=== PATIENT | female | born 1955 | race Caucasian/White ===

== ENCOUNTER 2016-06-24 22:14 | Inpatient (IN) | payer BC ==
[2016-06-24 22:34] LABS: URINE APPEARANCE CLEAR; URINE BILIRUBIN SMALL (NEGATIVE); URINE BLOOD LARGE (NEGATIVE); URINE COLOR YELLOW; URINE GLUCOSE (UA) NEGATIVE (NEGATIVE); URINE KETONE TRACE (NEGATIVE); URINE LEUKOCYTE ESTERASE TRACE (NEGATIVE); URINE NITRITE NEGATIVE (NEGATIVE); URINE UROBILINOGEN 0.2 E.U./dL (0.20 - 1.00)
--- NOTE | 2016-06-24 22:40 | Emergency Department Record ---
History of Present Illness - General Chief Complaint: Abdominal Pain Stated Complaint: ABD PAIN Time Seen by Provider: 06/24/16 22:26 Source: Patient Mode of Arrival: Ambulatory Limitations: No limitations - History of Present Illness Initial Comments: The patient is here due to L sided AP for 2-3 days. The pain is mainly in the upper abdomen > lower abdomen. It is sharp and stabbing at times and she did have one episode of loose stools yesterday AM. Motrin does help the pain and eating does not affect it. She denies any nausea, back pain, fever, chills, dysuria or hematuria. The patient has had a PARAG in the past and has had a hx of Ovarian CA but that is not active at this time. MD Complaint: Abdominal pain Onset/Timin -: Days(s) Location: [facility] Radiation: None Severity: Moderate Quality: Cramping Consistency: Constant, Getting worse Improves With: Nothing Worsens With: Nothing Associated Symptoms: Diarrhea - Related Data Patient : No Home Medications Medication Instructions Recorded Confirmed Last Taken No Home Med [NO HOME MEDS] 06/24/16 06/24/16 Unknown Allergies Allergy/AdvReac Type Severity Reaction Status Date / Time minocycline [From Minocin] Allergy RASH Verified 06/24/16 22:40 Travel Screening - Travel/Exposure Within Last 30 Days Have you traveled within the last 30 days?: No Review of Systems Constitutional: Denies: Chills, Fever Eyes: Denies: Eye discharge ENT: Denies: Congestion Respiratory: Denies: Cough, Dyspnea Past Medical History - SOCIAL HISTORY Smoking Status: Never smoker Alcohol Use: None Drug Use: None - RESPIRATORY Hx Respiratory Disorders: No - CARDIOVASCULAR Hx Cardio Disorders: No - NEURO Hx Neuro Disorders: No - GI Hx GI Disorders: No - Hx Genitourinary Disorders: No - ENDOCRINE Hx Endocrine Disorders: No - MUSCULOSKELETAL Hx Musculoskeletal Disorders: No - PSYCH Hx Psych Problems: No - HEMATOLOGY/ONCOLOGY Hx Hematology/Oncology Disorders: Yes Hx Cancer: Yes (Ovarian) Hx Chemotherapy: Yes (02/01) Hx Radiation Therapy: No Family Medical History Any Significant Family History?: No Physical Exam - General General Appearance: Alert, Oriented x3, Cooperative, No acute distress - Head Head exam: Atraumatic, Normocephalic, Normal inspection - Eye Eye exam: Normal appearance, PERRL - ENT Throat exam: Normal inspection. negative: Tonsillar erythema, Tonsillar exudate - Neck Neck exam: Normal inspection, Full ROM. negative: Tenderness - Respiratory Respiratory exam: Normal lung sounds bilaterally. negative: Respiratory distress - Cardiovascular Cardiovascular Exam: Regular rate, Normal rhythm, Normal heart sounds - GI/Abdominal GI/Abdominal exam: Soft, Tenderness (There is upper abdominal tenderness L side to palpation.). negative: Distended, Guarding, Rebound, Rigid - Extremities Extremities exam: Normal inspection, Full ROM, Normal capillary refill. negative: Tenderness - Neurological Neurological exam: Alert, Normal gait. negative: Abnormal gait, Motor sensory deficit Course Vital Signs 06/24/16 22:23 Temperature 98.7 F Pulse Rate [ 112 H Pulse Ox Probe] Respiratory 20 Rate Blood Pressure 106/63 [Left Arm] Pulse Ox 95 - Reevaluation(s) Reevaluation #1: The patient is resting quietly. She denies any new issues or problems. She is still drinking the oral contrast. 06/24/16 23:42 Reevaluation #2: The patient is doing well. I did discuss the CT with the patient and the fact it appears she has a large L lower lobe pneumonia. Due to that fact we will admit the patient to the hospital for IV Abx. 06/25/16 02:13 Medical Decision Making - Data Complexity MDM Data: Labs Ordered and/or Reviewed, X-Ray Ordered and/or Reviewed - Lab Data Result diagrams: 06/24/16 23:00 06/24/16 23:00 Lab Results 06/24/16 Range/Units 22:34 Urine Color Yellow Urine Appearance Clear Urine pH 6.0 (5.0-8.0) Ur Specific [place] 1.020 (1.002-1.030) Urine Protein 100 mg/dl H (NEGATIVE) Urine Glucose (UA) Negative (NEGATIVE) Urine Ketones Trace H (NEGATIVE) Urine Blood Large H (NEGATIVE) Urine Nitrite Negative (NEGATIVE) Urine Bilirubin Small H (NEGATIVE) Urine Urobilinogen 0.2 (0.20 - 1.00) E.U./dL Ur Leukocyte Esterase Trace H (NEGATIVE) - Radiology Data Radiology results: Report reviewed (CT: Abdomen WNL's but Large L lower lobe pneumonia.), Image reviewed (CXR: Left Lower lobe infiltrate.) Disposition Disposition: Admit Clinical Impression: Pneumonia Qualifiers: Pneumonia type: due to unspecified organism Laterality: left Lung location: lower lobe of lung Qualified Code(s): J18.1 - Lobar pneumonia, unspecified organism Disposition: Still a Patient at [facility] Decision to Admit: Admit from ER Decision to Admit Date: 06/25/16 Decision to Admit Time: 02:15 Accepting Physician: Yolis Time Discussed w/Accepting Physician: 02:15 Condition: (2) Stable Forms: Patient Portal Access Time of Disposition: 02:15
[2016-06-24 22:41] LABS: URINE BACTERIA FEW; URINE WBC 0 - 2 (0-2/hpf)
[2016-06-24] MEDS ORDERED: 0.9 % SODIUM CHLORIDE 1,000 ML BAG IV ONE ×2 (22:46→23:24)
[2016-06-24] MEDS ORDERED: ONDANSETRON HCL IV 4 MG/2 ML VIAL IV ONE (22:46)
[2016-06-24] MEDS ORDERED: HYDROMORPHONE HCL 1 MG/ML CPJ IVP ONE ×2 (22:46→23:41)
[2016-06-24 23:12] LABS: HEMATOCRIT 39.6 % (35.0-47.0); HEMOGLOBIN 13.1 gm/dl (11.6-16.0); MEAN CELL VOLUME 101.8 fl (81-97); MEAN CORPUSCULAR HEMOGLOBIN 33.6 pg (27-33); MEAN CORPUSCULAR HGB CONC 33.1 g/dl (32-36); MEAN PLATELET VOLUME 9.5 fl (7.4-10.4); PLATELET COUNT 135 K/uL (130-400); RED BLOOD COUNT 3.89 M/uL (3.80-5.40); WHITE BLOOD COUNT W/O DIFF 11.4 K/uL (4.2-12.2)
[2016-06-24 23:21] LABS: ALBUMIN 3.7 gm/dL (3.5-5.0); ALKALINE PHOSPHATASE 88 U/L (38-126); ALT/SGPT 18 U/L (9-52); AMYLASE < 30 U/L (30-110); ANION GAP 9.8 (7-16); AST/SGOT 15 U/L (14-36); BILIRUBIN,TOTAL 0.58 mg/dL (0.2-1.3); BLOOD UREA NITROGEN 22 mg/dL (7-17); CARBON DIOXIDE 23.2 mmol/L (22-30); CREATININE 1.1 mg/dL (0.52-1.04); EST GLOMERULAR FILTRATION RATE 54 ml/min; GLUCOSE,RANDOM 131 mg/dL (70-110); LIPASE 18 U/L (23-300); TOTAL PROTEIN 6.6 gm/dL (6.3-8.2)
[2016-06-25] MEDS ORDERED: AZITHROMYCIN 500 MG TABLET PO ONE (01:59)
[2016-06-25] MEDS ORDERED: CEFTRIAXONE SODIUM 1 GM in 0.9 % SODIUM CHLORIDE 100ML 100 ML IVPB ONE (02:01)
[2016-06-25] MEDS ORDERED: IPRATROPIUM/ALBUTEROL (0.5MG/3MG) NEB INH PRN (02:16)
[2016-06-25] MEDS ORDERED: 0.9 % SODIUM CHLORIDE 1000ML 1,000 ML IV PRN ×2 (02:16→04:39)
[2016-06-25] MEDS ORDERED: ACETAMINOPHEN 500 MG TABLET PO PRN (02:16)
[2016-06-25] MEDS ORDERED: MORPHINE SULFATE 5 MG/ML PFS IVP ONE (02:27)
[2016-06-25] MEDS ORDERED: CEFTRIAXONE SODIUM 1 GM in 0.9 % SODIUM CHLORIDE 100ML 100 ML IVPB SCH (02:30)
[2016-06-25] MEDS ORDERED: AZITHROMYCIN 500 MG in 0.9 % SODIUM CHLORIDE 250ML 250 ML IVPB SCH (02:30)
[2016-06-25] MEDS ORDERED: HYDROCODONE/APAP 5/325MG TABLET PO ONE (03:21)
[2016-06-25 06:36] LABS: HEMATOCRIT 35.4 % (35.0-47.0); HEMOGLOBIN 11.7 gm/dl (11.6-16.0); MEAN CELL VOLUME 103.2 fl (81-97); MEAN CORPUSCULAR HEMOGLOBIN 34.1 pg (27-33); MEAN CORPUSCULAR HGB CONC 33.1 g/dl (32-36); MEAN PLATELET VOLUME 9.6 fl (7.4-10.4); PLATELET COUNT 108 K/uL (130-400); RED BLOOD COUNT 3.43 M/uL (3.80-5.40); RED CELL DISTRIBUTION WIDTH 12.7 % (11.5-14.5); WHITE BLOOD COUNT W/O DIFF 5.8 K/uL (4.2-12.2)
[2016-06-25 06:54] LABS: BASO % 0.2 % (0-6); EOS % 0.2 % (0-6); GRAN % 93.8 % (47-80); LYMPH % 2.2 % (16-45); MONO % 3.6 % (0-9)
[2016-06-25 06:56] LABS: ALBUMIN 2.7 gm/dL (3.5-5.0); ALKALINE PHOSPHATASE 64 U/L (38-126); ALT/SGPT 24 U/L (9-52); ANION GAP 5.8 (7-16); AST/SGOT 10 U/L (14-36); BILIRUBIN,TOTAL 0.34 mg/dL (0.2-1.3); BLOOD UREA NITROGEN 16 mg/dL (7-17); CARBON DIOXIDE 22.2 mmol/L (22-30); EST GLOMERULAR FILTRATION RATE > 60 ml/min; GLUCOSE,RANDOM 94 mg/dL (70-110); TOTAL PROTEIN 5.3 gm/dL (6.3-8.2)
[2016-06-25] MEDS: ACETAMINOPHEN 500 MG TABLET PO PRN ×2 (09:04→14:26)
--- NOTE | 2016-06-25 09:14 | RADIOLOGY REPORT ---
EXAM: CHEST, TWO VIEWS HISTORY: ACUTE NONPRODUCTIVE COUGH. ACTIVE OVARIAN CANCER, CHEMOTHERAPY LAST DOSE 02/16/16. TECHNIQUE: Two views of the chest were obtained. Comparison: Abdomen CT same day. FINDINGS: Right chest port present. Extensive lung consolidation in the left lower lobe measuring at least 9 x 5 cm. Reticulonodular opacity at the right base could relate to atypical pneumonitis. The cardiac silhouette is not enlarged. The diaphragm and osseous structures are unremarkable. IMPRESSION: DENSE LEFT LOWER LOBE AIR SPACE DISEASE LIKELY DUE TO PNEUMONIA. RETICULONODULAR OPACITY AT THE RIGHT BASE WHICH MAY ALSO RELATE TO ATYPICAL PNEUMONITIS. JOB NUMBER: [id number] MTDD
--- NOTE | 2016-06-25 09:33 | CT SCAN REPORT ---
EXAM: ABDOMEN AND PELVIS CT WITH IV CONTRAST HISTORY: ACUTE LEFT LOWER QUADRANT ABDOMINAL PAIN. HISTORY OF OVARIAN CANCER AND CHEMOTHERAPY. TECHNIQUE: Contiguous axial images from the lung bases to the symphysis pubis were obtained after the uneventful intravenous administration of 100 ml of Omnipaque 300. Oral contrast was also utilized. Comparison: Chest x-ray 06/25/16. FINDINGS: Dense consolidation involving the basal segments of the left lower lobe. Pleural based density extending into the intercostal muscle between the right tenth and eleventh ribs best seen on axial images 23 through 26 suspicious for tumor. This measures up to 2.9 x 1.4 cm. Trace left pleural effusion. The liver demonstrates a cyst in the inferior aspect of the right lobe measuring 7.5 mm. The spleen, kidneys, adrenals, and pancreas are unremarkable. The gallbladder is mildly distended with no adjacent inflammation. The visualized loops of small and large bowel are of normal caliber with no wall thickening. The appendix is not seen with certainty although there are no pericecal inflammatory changes. Mild to moderate aortoiliac calcification. The uterus is absent. No free intraperitoneal fluid or adenopathy. Surgical clips in the deep pelvis. Small lucent foci within the T9 through T12 vertebral bodies as well as L1 through L5 vertebral bodies in the left iliac wing. IMPRESSION: 1. DENSE CONSOLIDATIVE CHANGE IN THE LEFT LOWER LOBE LIKELY DUE TO PNEUMONIA. SMALL LEFT PLEURAL EFFUSION LIKELY A PARAPNEUMONIC EFFUSION. 2. THERE IS A PLEURAL DENSITY EXTENDING INTO THE INTERCOSTAL MUSCLE BETWEEN THE RIGHT TENTH AND ELEVENTH RIBS SUSPICIOUS FOR PLEURAL BASED TUMOR. RECOMMEND COMPARISON TO ANY PRIOR IMAGING. 3. SURGICAL CLIPS IN THE DEEP PELVIS WITH NO FREE INTRAPERITONEAL FLUID OR OBVIOUS ADENOPATHY. 4. INDETERMINATE LUCENT LESIONS THROUGHOUT THE AXIAL SKELETON FOR WHICH METASTATIC DISEASE CANNOT BE COMPLETELY EXCLUDED. JOB NUMBER: [id number] MTDD
[2016-06-25] MEDS: CEFTRIAXONE SODIUM 1 GM in 0.9 % SODIUM CHLORIDE 100ML 100 ML IVPB SCH (14:26)
[2016-06-25] MEDS: ENOXAPARIN 40 MG/0.4 ML SYR SQ SCH (14:27)
[2016-06-25] MEDS: TRAMADOL HCL 50 MG TABLET PO PRN (23:33)
[2016-06-25] MEDS: IPRATROPIUM/ALBUTEROL (0.5MG/3MG) NEB INH PRN (23:41)
[2016-06-26] MEDS: CEFTRIAXONE SODIUM 1 GM in 0.9 % SODIUM CHLORIDE 100ML 100 ML IVPB SCH ×2 (01:54→14:24)
[2016-06-26] MEDS: AZITHROMYCIN 500 MG in 0.9 % SODIUM CHLORIDE 250ML 250 ML IVPB SCH (02:57)
--- NOTE | 2016-06-26 10:03 | History and Physical Report ---
DATE OF ADMISSION: 06/25/2016 CHIEF COMPLAINT: Left upper quadrant abdominal pain. HISTORY OF CHIEF COMPLAINT: This 60-year-old female presents to the Emergency Department, is seen by Dr. Bejarano, with initial complaints of left-sided abdominal pain for the last 2-3 days. She describes the pain as being right around the area of the left diaphragm, sharp, stabbing type pain. She also had 1 episode of loose stools on the day of presenting to the emergency department, and also she took Motrin to help the pain which did not seem to help. Eating did not change the pain. She denies nausea, back pain, fever, chills, dysuria, or hematuria. She said she took 1 dose of Imodium which helped the diarrhea. She said she has a dry cough. She did complain of some chills and sweats the night prior to coming to the emergency department. MEDICAL HISTORY: Ovarian cancer with a hysterectomy and diagnosis in 2011. Her oncologist is Dr. Dev Garcia at [facility]. She finished chemotherapy in January 2016 and she had a PET scan in March 2016 at [facility] which she was told was negative. She is seeing Oncology every 3 months. She also has a history of a goiter, goiter surgery many years ago. She sees Dr. Forrest, the educational technologist in [place]. She was on thyroid medication but that was stopped about 2 years ago because she got tired of taking the medication and Dr. Forrest checked her over and okayed stopping the thyroid medication. SURGICAL HISTORY: Hysterectomy and bilateral oophorectomy for ovarian cancer, a goiter removal. The thyroid was to prevent the goiter from reforming. Kind of sounds like a thyroid nodule. CURRENT MEDICATIONS: None. ALLERGIES: Minocin. SOCIAL HISTORY: She smoked cigarettes, about a half pack a day, started at 18 years of age, stopped in 2013. She never smoked at work. Alcohol: None. Drugs: Denies any illegal drug use. FAMILY HISTORY: None. SYSTEMS REVIEW: HEENT: She denies sore throat, congestion or cough, except when I asked her if she had a dry cough, she did admit to a dry cough. Cardiovascular: Kind of left upper quadrant, left-sided chest pain. Denies any murmurs, palpitations or orthopnea. Respiratory: Dry cough, sweats and chills the night before admission, and a smoking history. Gastrointestinal: No nausea or vomiting. She did have some diarrhea. No heartburn, no melena, no dysphagia. Genitourinary: No dysuria, hematuria, frequency or burning on urination. Musculoskeletal: No joint or bone abnormalities. Neurologic: No CVA, paralysis or paresthesias. Gynecological history: She has ovarian cancer, hysterectomy with bilateral salpingo-oophorectomy. She had chemotherapy and that [facility] Endocrine: She had a thyroid goiter resected and the thyroid medication was stopped about 2 years ago. Integument: No rash, ulcerative changes or yellow skin. PHYSICAL EXAMINATION: VITAL SIGNS: Height is 5 feet 5 inches. Weight is 121 pounds. HEENT: Pupils are equal, round and reactive to light and accommodation. Extraocular muscles are intact. Throat is clear. Nose is clear. Tympanic membranes are chapman. NECK: Supple. No JVD, no distention, no hepatojugular reflux, no carotid bruits. Thyroid is slightly abnormal on palpation but I do think it is secondary to surgery she had. No masses palpated. LUNGS: Tachypneic, running 21, 20 breaths a minute. There are no lung sounds in the left lower lobe on the posterior side of her chest; otherwise, lung sounds are present bilaterally, no wheezing. HEART: Tachycardic. Regular rate and rhythm. No clicks, rubs or murmurs. ABDOMEN: Soft, no tenderness. She said the pain in her abdomen is gone today. No hepatosplenomegaly, no masses palpated. Bowel sounds are active. No bruits. EXTREMITIES: No pitting edema, no cyanosis, no clubbing. Full range of motion. Peripheral pulses are good. There is no pain with palpation of the calves or thighs but I am going to cover for DVT prophylaxis. BREASTS, GYNECOLOGICAL AND RECTAL: Deferred. NEUROLOGIC: Cranial nerves II-XII intact. No gross decrease in sensation. Arm strength is normal. Deep tendon reflexes are equal bilaterally. Babinski is negative. MENTAL STATUS: Alert and oriented x 3. IMPRESSION: 1. Left lower lobe infiltrate, possibly a mass the way it looks but the radiologist said it is more pneumonia. 2. Tachycardia. 3. History of ovarian cancer. 4. History of a goiter and resected surgically. PLAN: IV fluids, Rocephin 1 gram q.12 hours, azithromycin 500 mg daily, an EKG now because of her tachycardia. I will also get a TSH at the next blood draw. It is a little bit confusing looking at previous orders. The blood cultures look like they were canceled. I am not sure if they were done, I cannot tell by deciphering this computer. I will have to talk to somebody about if blood cultures were obtained in the ER. LINDSAY
[2016-06-26] MEDS: ENOXAPARIN 40 MG/0.4 ML SYR SQ SCH (10:06)
[2016-06-26] MEDS: TRAMADOL HCL 50 MG TABLET PO PRN (18:18)
[2016-06-27] MEDS: CEFTRIAXONE SODIUM 1 GM in 0.9 % SODIUM CHLORIDE 100ML 100 ML IVPB SCH ×2 (01:08→15:08)
[2016-06-27] MEDS: TRAMADOL HCL 50 MG TABLET PO PRN ×2 (02:21→17:33)
[2016-06-27] MEDS: AZITHROMYCIN 500 MG in 0.9 % SODIUM CHLORIDE 250ML 250 ML IVPB SCH (02:58)
--- NOTE | 2016-06-27 07:19 | CT ANGIOGRAM REPORT ---
EXAM: CTA OF THE CHEST HISTORY: TACHYCARDIA, ACUTE DIFFICULTY BREATHING, RIGHT SIDE PLEURITIC CHEST PAIN. OVARIAN CANCER ACTIVE, CURRENTLY UNDERGOING CHEMOTHERAPY. TECHNIQUE: Contiguous axial images from the thoracic inlet to the upper abdomen were obtained after the uneventful intravenous administration of 80 ml of Omnipaque 350. Sagittal and coronal two dimensional MIP as well as 3D/MIP reformatted images were obtained for better anatomic delineation. Comparison: Chest x-ray 06/25/16. FINDINGS: Moderate centrilobular emphysema. Small bilateral pleural effusions measuring up to 14 mm in thickness on the left. There is consolidation of the entire left lower lobe with hypoenhancement likely due to pneumonia. Mild dependent atelectasis in the right lower lobe. The left pleural effusion measures up to 2.8 cm in thickness. There is a pleural based mass extending between the right tenth and eleventh ribs which appears to be enhancing and measures up to 3.2 x 1.0 cm in size, best seen on axial image 199. The heart is not enlarged and there is no pericardial effusion. No coronary artery calcification. Borderline prominent subcarinal lymph node measures 2.4 x 1.5 cm. Enlarged left infrahilar lymph node measures approximately 1.5 x 1.2 cm. The upper abdomen is unremarkable. Tiny lucencies at most levels of the thoracic spine measuring up to 5 mm. The pulmonary arteries are well opacified. No filling defect to suggest pulmonary embolism. No thoracic aortic dissection. IMPRESSION: 1. NO PULMONARY EMBOLISM OR THORACIC AORTIC DISSECTION. 2. CONSOLIDATION OF THE ENTIRE LEFT LOWER LOBE WITH HYPOENHANCEMENT LIKELY DUE TO PNEUMONIA. 3. SMALL PLEURAL EFFUSIONS LEFT GREATER THAN RIGHT. 4. PLEURAL BASED ENHANCING MASS EXTENDING BETWEEN THE RIGHT TENTH AND ELEVENTH RIBS CONSISTENT WITH METASTATIC DISEASE. 5. SMALL LUCENCIES THROUGHOUT THE THORACIC VERTEBRAL BODIES FOR WHICH METASTATIC DISEASE IS NOT EXCLUDED. JOB NUMBER: [id number] MTDD
[2016-06-27] MEDS: ENOXAPARIN 40 MG/0.4 ML SYR SQ SCH (10:47)
[2016-06-27] MEDS: IPRATROPIUM/ALBUTEROL (0.5MG/3MG) NEB INH SCH ×3 (11:11→22:34)
[2016-06-27] MEDS: ACETAMINOPHEN 500 MG TABLET PO PRN (21:19)
[2016-06-28] MEDS: CEFTRIAXONE SODIUM 1 GM in 0.9 % SODIUM CHLORIDE 100ML 100 ML IVPB SCH ×2 (02:33→14:35)
[2016-06-28] MEDS: TRAMADOL HCL 50 MG TABLET PO PRN ×2 (03:58→16:46)
[2016-06-28] MEDS: AZITHROMYCIN 500 MG in 0.9 % SODIUM CHLORIDE 250ML 250 ML IVPB SCH (03:59)
[2016-06-28] MEDS: IPRATROPIUM/ALBUTEROL (0.5MG/3MG) NEB INH SCH ×4 (04:27→23:10)
[2016-06-28] MEDS: IPRATROPIUM/ALBUTEROL (0.5MG/3MG) NEB INH PRN (06:45)
[2016-06-28 06:57] LABS: BASO % 0.2 % (0-6); EOS % 0.5 % (0-6); GRAN % 80.6 % (47-80); HEMATOCRIT 33.3 % (35.0-47.0); HEMOGLOBIN 11.1 gm/dl (11.6-16.0); LYMPH % 5.9 % (16-45); MEAN CELL VOLUME 101.8 fl (81-97); MEAN CORPUSCULAR HEMOGLOBIN 33.9 pg (27-33); MEAN CORPUSCULAR HGB CONC 33.3 g/dl (32-36); MEAN PLATELET VOLUME 8.7 fl (7.4-10.4); MONO % 12.8 % (0-9); PLATELET COUNT 186 K/uL (130-400); RED BLOOD COUNT 3.27 M/uL (3.80-5.40); RED CELL DISTRIBUTION WIDTH 12.6 % (11.5-14.5); WHITE BLOOD COUNT W/O DIFF 5.8 K/uL (4.2-12.2)
[2016-06-28 07:09] LABS: ALB/GLOB RATIO 1.1 (1.1-1.8); ALKALINE PHOSPHATASE 68 U/L (38-126); ALT/SGPT 33 U/L (9-52); ANION GAP 8.7 (7-16); AST/SGOT 14 U/L (14-36); BILIRUBIN,TOTAL 0.23 mg/dL (0.2-1.3); BLOOD UREA NITROGEN 12 mg/dL (7-17); CARBON DIOXIDE 24.3 mmol/L (22-30); CREATININE 0.7 mg/dL (0.52-1.04); EST GLOMERULAR FILTRATION RATE > 60 ml/min; GLUCOSE,RANDOM 106 mg/dL (70-110); TOTAL PROTEIN 5.7 gm/dL (6.3-8.2)
[2016-06-28] MEDS ORDERED: 0.9 % SODIUM CHLORIDE 1000ML 1,000 ML IV ONE (10:42)
[2016-06-28] MEDS ORDERED: FUROSEMIDE IV 20MG/2ML VIAL IVP ONE (10:54)
[2016-06-28 11:29] LABS: ARTERIAL BLOOD GAS BASE EXCESS 0.8 mmol/L (-2 - 3); ARTERIAL BLOOD GAS HCO3 23.8 mmol/L (18-23); ARTERIAL BLOOD GAS PCO2 33.8 mmHg (35-48); ARTERIAL BLOOD GAS pH 7.46 (7.35-7.45); CARBOXYHEMOGLOBIN 1.1 % (0-1.5); METHEMOGLOBIN 0.7 % (0.0-1.5); O2 HEMOGLOBIN 93.2 % vol (94-99); TOTAL HEMOGLOBIN 11.7 g/dl (11.6-16)
[2016-06-28 11:30] LABS: ALLEN TEST PASS
[2016-06-28] MEDS: ENOXAPARIN 40 MG/0.4 ML SYR SQ SCH (11:40)
[2016-06-28] MEDS ORDERED: TRAMADOL HCL 50 MG TABLET PO ONE (21:24)
[2016-06-29] MEDS: CEFTRIAXONE SODIUM 1 GM in 0.9 % SODIUM CHLORIDE 100ML 100 ML IVPB SCH ×2 (02:27→13:35)
[2016-06-29] MEDS: AZITHROMYCIN 500 MG in 0.9 % SODIUM CHLORIDE 250ML 250 ML IVPB SCH (03:43)
[2016-06-29] MEDS: IPRATROPIUM/ALBUTEROL (0.5MG/3MG) NEB INH SCH ×2 (05:21→10:17)
[2016-06-29 06:48] LABS: ANION GAP 5.8 (7-16); BLOOD UREA NITROGEN 11 mg/dL (7-17); CARBON DIOXIDE 27.2 mmol/L (22-30); CREATININE 0.8 mg/dL (0.52-1.04); EST GLOMERULAR FILTRATION RATE > 60 ml/min; GLUCOSE,RANDOM 91 mg/dL (70-110)
[2016-06-29] MEDS: TRAMADOL HCL 50 MG TABLET PO PRN (09:01)
[2016-06-29] MEDS ORDERED: FUROSEMIDE IV 20MG/2ML VIAL IVP SCH (10:00)
[2016-06-29] MEDS: ENOXAPARIN 40 MG/0.4 ML SYR SQ SCH (10:42)
[2016-06-29] MEDS: ACETAMINOPHEN 500 MG TABLET PO PRN (13:34)
[2016-06-30] MEDS ORDERED: FUROSEMIDE 20 MG TABLET PO SCH (10:00)
[2016-06-30] MEDS ORDERED: POTASSIUM CHLORIDE 10 MEQ TAB PO SCH (10:00)
[2016-06-30] MEDS ORDERED: AZITHROMYCIN 500 MG TABLET PO SCH (10:00)
--- NOTE | 2016-07-01 07:44 | RADIOLOGY REPORT ---
EXAM: CHEST, TWO VIEWS HISTORY: PNEUMONIA. TECHNIQUE: Two views of the chest were obtained. Comparison: Chest x-ray 06/25/16. FINDINGS: Right chest port present. Small pleural effusions, left greater than right. Moderately dense retrocardiac air space disease slightly improved from prior study. Mild right basilar air space disease increased from prior. Small right effusion more apparent than prior. The cardiac silhouette is partially obscured. The diaphragm and osseous structures are unremarkable. IMPRESSION: 1. SMALL PLEURAL EFFUSIONS LEFT GREATER THAN RIGHT, PROBABLY IMPROVED ON THE LEFT ALTHOUGH SLIGHTLY WORSE ON THE RIGHT. 2. IMPROVED RETROCARDIAC OPACITY WITH MODERATE RETROCARDIAC ATELECTASIS OR PNEUMONITIS REMAINING. 3. MILD RIGHT BASILAR ATELECTASIS OR PNEUMONITIS SLIGHTLY MORE APPARENT THAN PRIOR. JOB NUMBER: [id number] MTDD
--- NOTE | 2016-07-01 17:32 | Discharge Summary ---
DISCHARGE SUMMARY AND TRANSFER TO [facility] DISCHARGE DIAGNOSES: 1. Left lower lobe pneumonia. 2. History of ovarian cancer. 3. Bilateral pleural effusions. 4. History of goiter, which was resected surgically. Her oncologist is Dr. Dev Garcia at [facility]. Dr. Forrest is the dice table person who has seen her in the past in [place], [place]. ATTENDING PHYSICIAN: Hubert Lagos DO REASON FOR HOSPITALIZATION: Left lower quadrant abdominal pain. This 60-year-old female presented to the Emergency Department, was seen by Dr. Bejarano with initial complaint of left-sided abdominal and chest wall pain that started 2-3 days prior to admission. She also had 1 loose stool on the day presenting to the Emergency Department. She took Motrin to help the pain, which did not seem to help. Eating did not cause the pain to change. She denied any nausea, back pain, fever, chills, dysuria or hematuria. She took 1 dose of Imodium, which helped the diarrhea. She has a dry cough. She had complained of chills and sweats the night prior. Dr. Bejarano evaluated her. Chest x-ray was obtained showing a left lower lobe pneumonia with dense consolidation, and she was admitted to the hospital for IV antibiotics and oxygen therapy. Her oxygen was running low. SIGNIFICANT FINDINGS: Chest x-ray showing dense left lower lobe air space disease likely due to pneumonia, in particular a nodule opacity at the right base, which may also relate to atypical pneumonitis. She also had an elevated D-dimer and a CTA of the chest was performed showing no pulmonary embolism or thoracic dissection. She did show consolidation of the entire left lower lobe with hyperenhancement likely due to the pneumonia. Small pleural effusions, left greater than right. It also showed there was a pleural base enhancing mass extending between the right 10th and 11th ribs consistent with metastatic disease. After talking to her about this, the patient said that she had a spot in her right lung that she was told by the oncologist at [facility], they did a PET scan. Things were stable. The PET scan was done in March 2016 at [facility]. She also has small lucencies throughout the thoracic vertebral bodies for which metastatic disease is not excluded, and this will need to be further followed as an outpatient. HOSPITAL COURSE: She had a fairly long course with her pneumonia. Her oxygen requirements went up to 6 liters per nasal cannula at one point, and then started to come back down. She was on 2 liters nasal cannula on the day she insisted to be transferred to [facility]. Prior to this, the day before, she insisted to be transferred to [facility]. I called the [facility] doctors, talked to Dr. Kelley, and at this point he said the patient is a Med-Surgical Level patient. They had no beds available. Unless she was an ICU patient, he could not take her. He agrees with the Plan of Care, and he said they would do nothing different at [facility]. The next day, the patient's family came back in, got her workup again about what was happening and that she was not getting better fast enough. They insisted that she get transferred to [facility], where she has been before. At that point, I discussed the case with Dr. Lim at [facility] who accepted the transfer and the reason why were are transferring her is because of possible need for pulmonary to bronch her to clean out any mucus plugging that may be present and causing her prolonged course of treatment, also to possibly see an Infectious Disease doctor, since it is taking 6 days to get over this pneumonia. CONDITION AT DISCHARGE: Stable, but guarded because of her comorbid conditions. Patient was transferred to [facility] by ambulance with oxygen and IV antibiotics and fluids. She had a saline lock when she was transferred over. She is on oral Lasix at 20 mg a day, azithromycin orally 500 mg a day, and Rocephin 1 gram every 12 hours. Oxygen therapy was at 2 liters per minute nasal cannula, and her pulse ox was running at 95% at 2 liters per minute nasal cannula. [facility]
== END 2016-06-29 15:40 | disposition short-term general hospital (02) | DRG 194 ==
LOC: ER 22:14 → MEDSURG 06-25 03:38
PROVIDERS: ADMIT Emergency Medicine; ATTEND Emergency Medicine
DX: J18.1 Lobar pneumonia, unspecified organism (principal); J90 Pleural effusion, not elsewhere classified; R00.0 Tachycardia, unspecified; Z80.41 Family history of malignant neoplasm of ovary; D48.0 Neoplasm of uncertain behavior of bone and articular cartilage; D38.1 Neoplasm of uncertain behavior of trachea, bronchus and lung
CPT/HCPCS: 36600; 71020; 71275; 74177; 80048; 80053; 80076; 81001; 82150; 82375; 82803; 83690; 84443; 85025; 85027; 85379; 87040; 93005; 94640; 94760; 94761; 96361; 96365; 96375; 96376; 99223; 99233; 99239; 99285; J0456; J1170; J1650; J1940; J2405; J7030; J7050

== ENCOUNTER 2017-11-13 22:15 | Emergency (ER) | payer BC ==
[2017-11-13] MEDS ORDERED: METHYLPREDNISOLONE PF 125MG/VIAL IM ONE (22:39)
--- NOTE | 2017-11-13 22:46 | Emergency Department Record ---
History of Present Illness - General Chief Complaint: Back Pain/Injury Stated Complaint: HAD RADATION TODAY HAS A PAIN FLARE Time Seen by Provider: 11/13/17 22:20 Source: Patient Mode of Arrival: Ambulatory Limitations: No limitations - History of Present Illness Initial Comments: 62 yo female presents to ED for evaluation of right sided para-vertebral pain in the thoracic region following high-does radiation this evening (5.5 hours ago ) [facility] Patient is currently being treated for ovarian cancer stage 3C, this was her first does of radiation. Patient's daughter contacted the on-call provider at [facility], recommended coming to the ED for steroid injection to help with swelling. Patient denies lower extremity weakness, numbness over the groin or lower extremities, urinary retention symptoms. Patient currently rates her pain at 7/0 to the right posterior rib region. Patient did take Ibuprofen for her symptoms prior to arrival. MD Complaint: Back pain Onset/Timin -: Hour(s) Similar Symptoms Previously: No Place: Other Severity: Moderate Severity scale (1-10): 7 Quality: Aching Improves With: None Worsens With: None Associated Symptoms: Denies other symptoms Treatments Prior to Arrival: NSAIDS - Related Data Home Medications Medication Instructions Recorded Confirmed Last Taken Olaparib [Lynparza] 150 mg PO BID 11/13/17 11/13/17 3 Days Ago ~11/10/17 Allergies Allergy/AdvReac Type Severity Reaction Status Date / Time minocycline [From Minocin] Allergy RASH Verified 06/24/16 22:40 Travel Screening - Travel/Exposure Within Last 30 Days Have you traveled within the last 30 days?: No - Travel Symptoms Symptom Screening: None Review of Systems Constitutional: Denies: Chills, Fever, Malaise, Night sweats Eyes: Denies: Eye discharge, Eye pain ENT: Denies: Congestion, Ear pain, Epistaxis Respiratory: Denies: Cough, Dyspnea Cardiovascular: Denies: Chest pain, Dyspnea on exertion Endocrine: Denies: Fatigue, Heat or cold intolerance Gastrointestinal: Denies: Abdominal pain, Nausea, Vomiting Genitourinary: Denies: Dysuria, Incontinence, Retention Musculoskeletal: Reports: Back pain Skin: Denies: Bruising, Change in color Neurological: Denies: Abnormal gait, Confusion, Seizure Psychiatric: Denies: Anxiety Hematological/Lymphatic: Denies: Anemia, Blood Clots Past Medical History - SOCIAL HISTORY Smoking Status: Current some day smoker Alcohol Use: None Drug Use: None - RESPIRATORY Hx Respiratory Disorders: Yes Hx Pneumonia: Yes - CARDIOVASCULAR Hx Cardio Disorders: No - NEURO Hx Neuro Disorders: No - GI Hx GI Disorders: No - Hx Genitourinary Disorders: No - ENDOCRINE Hx Endocrine Disorders: No - MUSCULOSKELETAL Hx Musculoskeletal Disorders: No - PSYCH Hx Psych Problems: No - HEMATOLOGY/ONCOLOGY Hx Hematology/Oncology Disorders: Yes Hx Cancer: Yes (Ovarian) Hx Chemotherapy: Yes (02/01) Hx Radiation Therapy: Yes Family Medical History Any Significant Family History?: No Physical Exam - General General Appearance: Alert, Oriented x3, Cooperative, Mild distress, Other ( Smiling, pain appears controlled on examination) Limitations: No limitations - Head Head exam: Atraumatic, Normocephalic, Normal inspection Head exam detail: negative: Abrasion, Contusion, Bermudez's sign, General tenderness, Hematoma, Laceration - Eye Eye exam: Normal appearance. negative: Conjunctival injection, Periorbital swelling, Periorbital tenderness, Scleral icterus - ENT Ear exam: negative: Auricular hematoma, Auricular trauma Nasal Exam: negative: Active bleeding, Discharge, Dried blood, Foreign body Mouth exam: negative: Drooling, Laceration, Muffled voice, Tongue elevation - Neck Neck exam: Normal inspection. negative: Meningismus, Tenderness - Respiratory Respiratory exam: Normal lung sounds bilaterally. negative: Rales, Respiratory distress, Rhonchi, Stridor - Cardiovascular Cardiovascular Exam: Regular rate, Normal rhythm, Normal heart sounds - GI/Abdominal GI/Abdominal exam: Soft. negative: Rebound, Rigid, Tenderness - Rectal Rectal exam: Deferred - exam: Deferred - Extremities Extremities exam: Normal inspection. negative: Calf tenderness, Pedal edema, Tenderness - Back Back exam: Denies: CVA tenderness (R), CVA tenderness (L) - Neurological Neurological exam: Alert, Normal gait, Oriented X3, Other (Lower extremity strength 5/5 and symmetric bilaterally with dorsiflexion, plantarflexion, and lower extermity extension.). negative: Motor sensory deficit - Psychiatric Psychiatric exam: Normal affect, Normal mood - Skin Skin exam: Normal color. negative: Abrasion Type of lesion: negative: abrasion Course Vital Signs 11/13/17 22:23 Temperature 98.3 F Pulse Rate 79 Respiratory 20 Rate Blood Pressure 140/77 Pulse Ox 99 - Reevaluation(s) Reevaluation #1: 11/13/17 22:46 Patient was seen and examined. Patient has no clinical evidence for acute spinal cord compression syndrome on examination and reports that her pain symptoms are overlying a 4.8x2.2 cm mass to the right posterior 10 rib (per previous CT imaging 10/10/17). I did discuss re-imaging via MRI requiriubng transfer (patient declined, no evidence for cord impingement) or CT Chest to exclude bony destructive lesion following radiation (again declined by patient and family). Patient's pain symptoms do not worsen with movement of standing. Patient's radiation oncolgist recommended steroid for her pain symptoms, solumedrol 125 mg ordered IM. Will reassess following administration and consultation with the patient's oncologist. Reevaluation #2: 11/13/17 23:33 Patient was reassessed and reports near resolution of the pain over her right posterior rib lesion. Patient also reports that she has an Rx for Prednisone at [facility]'s pharmacy. Patient reports that she is feeling better and is ready to go home at this time. Patient also reports that she has follow-up appointment Friday with her Oncologist (Dr. Harris) at [facility]. Reevaluation #3: 11/13/17 23:45 Case was discussed with Dr. Simmons (on-call provider for Dr. Maria Eugenia Harris at [facility]), no further recommendations at this time. Patient appears stable for discharge with outpatient follow-up. Disposition Disposition: Discharge Clinical Impression: Rib pain on right side Disposition: Home, Self-Care Condition: (2) Stable Instructions: Back Pain (ED) Additional Instructions: Return to ED if your symptoms worsen or if you have any concerns. Prednisone as previously prescribed. Follow-up with your Oncologist Friday as scheduled. Forms: Patient Portal Access Time of Disposition: 23:35 Quality - Quality Measures Quality Measures: N/A - Blood Pressure Screening Does Patient Have Any of the Following: No Blood Pressure Classification: Hypertensive Reading Systolic Measurement: 140 Diastolic Measurement: 77 Screening for High Blood Pressure: < First Hypertensive BP, F/U Documented > [ [id number]] First Hypertensive Follow-up Interventions: Referral to alternative/primary care provider.
== END 2017-11-13 23:48 | disposition home or self-care (01) ==
LOC: ER 22:15
DX: G89.3 Neoplasm related pain (acute) (chronic) (principal); C56.1 Malignant neoplasm of right ovary; R07.81 Pleurodynia; M54.6 Pain in thoracic spine; F17.210 Nicotine dependence, cigarettes, uncomplicated
CPT/HCPCS: 96372; 99283; 99284; J2930